=== PATIENT | male | born 1995 | race Two or more races ===

== ENCOUNTER 2023-04-24 08:08 | Emergency (ER) | payer MEDICAID ==
[~2023-04-24] VITALS: Ht 185.4 cm; Wt 84.4 kg
[2023-04-24] MEDS ORDERED: IOHEXOL 350 MG/ML 100ML IJ ONE (08:40)
[2023-04-24 08:45] LABS: Basophils # (auto) 0.3 10 ^3/uL (0-0.2); Basophils % (auto) 3.8 % (0.0-2.0); Eosinophils # (auto) 0.2 10 ^3/uL (0-0.8); Eosinophils % (auto) 2.6 % (0.0-7.0); Hematocrit 43.4 % (41.0-53.0); Hemoglobin 15.1 g/dL (13.5-17.5); Lymphocytes # (auto) 1.8 10 ^3/uL (0.4-5.4); Lymphocytes % (auto) 27.5 % (10.0-50.0); Mean Corpuscular Hgb Conc. 34.8 g/dL (32.0-36.0); Monocytes # (auto) 0.4 10 ^3/uL (0-1.3); Monocytes % (auto) 6.5 % (0.0-12.0); Neutrophils # (auto) 3.9 10 ^3/uL (1.6-8.6); Neutrophils % (auto) 59.6 % (37.0-80.0); Nucleated Red Blood Cells % 0.2 %; Red Blood Cells 4.72 10^6/uL (4.5-5.90); Red Cell Distribution Width 13.3 % (11.8-14.3); White Blood Cell 6.6 10^3/uL (4.4-10.8)
[2023-04-24 09:06] LABS: Urine Bacteria NONE SEEN /hpf (None Seen); Urine Blood Negative /uL (Negative); Urine Specific Gravity 1.014 (1.001-1.035); Urine WBC 1 /hpf (0 - 3)
[2023-04-24 09:07] LABS: Albumin 4.2 g/dL (3.4-5.0); Calcium 9.2 mg/dL (8.5-10.1); Potassium 4.2 mmol/L (3.5-5.1)
[2023-04-24 09:10] LABS: BUN/Creatinine Ratio 13.1 (10.0-20.0); Bilirubin, Total 0.7 mg/dL (0.2-1.0)
[2023-04-24] MEDS ORDERED: levETIRAcetam 500 MG TAB PO ONE (13:00)
[2023-04-24 14:05] VITALS: BP 111/65
== END 2023-04-24 10:31 | disposition short-term general hospital (02) ==
LOC: ER 08:08
DX: Q27.30 Arteriovenous malformation, site unspecified (principal); R51.9 Headache, unspecified; Z20.822 Contact with and (suspected) exposure to COVID-19
CPT/HCPCS: 36415; 70496; 80053; 81001; 85025; 87426; 87491; 87591; 99285; Q9967